=== PATIENT | male | born 1995 | race Hispanic/Latino ===

== ENCOUNTER 2021-08-28 07:06 | Emergency (ER) | payer OTHER ==
[~2021-08-28] VITALS: Ht 182.9 cm; Wt 89.3 kg
[2021-08-28] MEDS ORDERED: NAPR-837 PO (09:10)
[2021-08-28 09:13] VITALS: BP 124/71
== END 2021-08-28 09:26 | disposition home or self-care (01) ==
LOC: M ED 07:06
DX: R07.89 Other chest pain (principal)

== ENCOUNTER 2021-11-10 | Emergency (ER) | payer OTHER ==
[~2021-11-10] VITALS: Ht 182.9 cm; Wt 85.0 kg
[~2021-11-10] MED LIST: NAPR-837 PO
[2021-11-10] MEDS ORDERED: ACETAMINOPHEN 325 MG TAB PO ONE (00:15)
[2021-11-10 04:30] VITALS: BP 125/76
[2021-11-10] MEDS ORDERED: BENZ1LOZ9 PO (04:45)
[2021-11-10] MEDS ORDERED: IBUP80TA PO (04:45)
== END 2021-11-10 05:05 | disposition home or self-care (01) ==
LOC: M ED
DX: U07.1 COVID-19 (principal); F17.200 Nicotine dependence, unspecified, uncomplicated